=== PATIENT | female | born 1995 | race Caucasian/White ===

== ENCOUNTER → 2018-08-01 10:26 | Outpatient (CLI) | payer MEDICAID, SELFPAY ==
[2018-08-01 11:52] LABS: Absolute Lymphocyte Count 1.67 X10^3/ul (0.83-4.51); Absolute Neutrophil Count 4.4 X10^3/uL (2.0-7.7); Basophil# 0.04 X10^3/uL; Basophil% 0.6 % (0-1); Eosinophil# 0.12 X10^3/uL; Eosinophils% 1.8 % (0-5); Hematocrit 40.4 % (37-47); Hemoglobin 12.8 g/dl (12.0-15.0); Lymphocyte # 1.67 X10^3/ul (4.0); Lymphocyte % 24.7 % (19-41); Mean Corp Hgb Conc 31.7 g/gl (32-36); Mean Corpuscular Hgb 26.5 pg (27.0-32.0); Mean Corpuscular Volume 83.6 fL (81-99); Mean Platelet Vol. 10.8 fl (6.2-12.0); Monocyte% 7.4 % (0-10); Neutrophil # 4.41 X10^3/uL (2.7-7.7); Neutrophil % 65.4 % (47-70); Platelet Count 244 K/mm3 (150-450); RBC Distribution Width CV 14.7 % (11.6-14.6); RBC Distribution Width SD 43.8 fl (35.1-43.9); Red Blood Count 4.83 M/mm3 (4.2-5.4); White Blood Count 6.8 K/mm3 (4.4-11.0)
[2018-08-01 11:59] LABS: POSITIVE COUNT NO; POSITIVE DIFFERENTIAL NO; POSITIVE MORPHOLOGY NO
[2018-08-01 12:11] LABS: Anion Gap 8 (5-15); BUN 8 mg/dL (7-18); BUN/Creat Ratio 9.4 RATIO (10-20); Calcium,Total 8.9 mg/dL (8.5-10.1); Chloride 107 mmol/L (98-107); Creatinine, Serum 0.86 mg/dL (0.55-1.02); EST Glomerular Filtration Rate 86 mL/min (>60); Est Glom Filt Rate - Afr Amer 104 mL/min (>60); Glucose 79 mg/dL (74-106); Potassium 3.7 mmol/L (3.5-5.1); Sodium Level 141 mmol/L (136-145); Thyroid Stim Hormone (TSH) 0.05 uIU/mL (0.358-3.74)
== END ==
DX: Z79.899 Other long term (current) drug therapy (principal)
CPT/HCPCS: 36415; 80048; 80178; 84443; 85025

== ENCOUNTER 2018-08-01 16:43 | Emergency (ER) | payer MEDICAID, SELFPAY ==
[2018-08-01 16:45] VITALS: BP 157/98; PULSE 117; RESP 16; TEMP 35.9; O2SAT 100; BMI 37.8
--- NOTE | 2018-08-01 16:50 | ED.RN ---
pt back to room . rn in room, clothes changed. sitter in bedside
--- NOTE | 2018-08-01 17:03 | EKG12_ITS ---
Test Reason : [facility] Blood Pressure : / mmHG Vent. Rate : 095 BPM Atrial Rate : 095 BPM P-R Int : 194 ms QRS Dur : 078 ms QT Int : 364 ms P-R-T Axes : 039 005 009 degrees QTc Int : 457 ms Normal sinus rhythm Cannot rule out Inferior infarct , age undetermined Abnormal ECG Confirmed by JAILENE DOMINGO, DAVID ([id number]), assistant editor SERAFIN DOYLE ([id number]) on 08/03/2018 3:41:05 PM Referred By: XIN ALEJO Confirmed By:DAVID DENT MD
--- NOTE | 2018-08-01 17:18 | ED.DCSUM_ITS ---
- ER Visit Summary Date of Service: 08/01/18 Chief Complaint: Suicidal ideation History of Present Illness: The patient is a 23 F presenting for evaluation secondary to suicidal ideation. She reports that she used to live and in the [facility], and recently just finished a long psychiatric admissions ranging from March to May of this year. She reports that she recently moved to the area, and is living with a couple that do not understand mental illness. Patient states that this is been causing her increased stress and increased suicidal thoughts. Patient states that recently this is gotten worse and she has feelings that she is either going to overdose or cut herself deep in an attempt to kill herself. She denies being homicidal or hallucinating. Physical Examination: Vital signs are within normal limits, patient is afebrile. General: Patient is well-nourished well-developed and in no acute distress. Head: Normocephalic, atraumatic Eyes: Pupils equal round and reactive bilaterally, extra occular motion intact bialterally ENT: Moist mucous membranes Neck: Supple, no lymphadenopathy, no JVD, no meningismus CVS: Heart regular rhythm with minimal tachycardia, no murmurs, rubs or gallops, radial pulses 2+ bilaterally Resp: Respirations nondistressed, lung sounds clear bilaterally Abdomen: Soft, nontender, nondistended, no palpable masses, normal bowel sounds Back: Nontender Extremities: Nontender, atraumatic, active full range of motion, no peripheral edema Skin: warm, no rashes, no petechia Neuro: Alert and oriented x 4, CN 2-12 intact, no lateralizing neurological defecits Psyc: Flat affect with endorsement of suicidal ideas with plan. Denies being homicidal or hallucinating. Test Results: EKG shows sinus rate of [address] segments normal T waves no evidence of acute ischemia or arrhythmia. CBC chemistry urinalysis hCG and TSH toxicology and ethanol screens all found to be unremarkable Emergency Department Course and Treatment: Patient presented for evaluation secondary to suicidal ideation. Screening medical exam and laboratory studies were remarkable. Patient has an extremely blunted affect, has a history of prior suicidality, and I do believe that she probably would benefit from inpatient stabilization. Psychiatric worker also agrees. Patient will be placed at our earliest availability for psychiatric stabilization. Disposition: Transfer Impression: 1. Suicidal ideation This note was generated with [employer] software. It may contain incorrect words, spelling, and punctuation that were not noted in review of the chart prior to signing ED Disposition - Plan for ED Patient: Chief Complaint: Suicidal Referrals: Care Physician,No Primary [Primary Care Provider] -
[2018-08-01 17:24] LABS: Bacteria 0 SEEN /hpf (None Seen); Mucous, Urine 0 SEEN /hpf (<or=2+); Red Blood Cells-Urine 0 SEEN /hpf (0-5); White Blood Cells 0 SEEN /hpf (0-5)
[2018-08-01 17:27] LABS: Color, Urine Yellow (Yellow); Glucose, Dipstick Normal (Normal); Ketone-Dipstick Negative (Negative); Leukocyte Esterase-Dipstick Negative /ul (Negative); Nitrite-Dipstick Negative (Negative); Occult Blood-Urine 10 /ul (Negative); Protein-Dipstick Negative (Negative); Specific Gravity, Urine 1.005 (1.002-1.030); Urine Bilirubin Dipstick Negative (Negative); Urine Clarity Clear (Clear); Urine Urobilinogen Normal (Normal)
[2018-08-01 17:33] LABS: Squamous Epithelial Cells - UA 0-5 SEEN /hpf (5-10)
[2018-08-01 17:43] LABS: AST(SGOT) 16 U/L (15-37); Alanine Aminotransfer ALT/SGPT 33 U/L (13-56); Albumin, Serum 4.1 g/dL (3.2-5.0); Alkaline Phosphatase 75 U/L (45-117); Anion Gap 8 (5-15); BUN 7 mg/dL (7-18); Calcium,Total 8.9 mg/dL (8.5-10.1); Chloride 106 mmol/L (98-107); Creatinine, Serum 0.87 mg/dL (0.55-1.02); EST Glomerular Filtration Rate 84 mL/min (>60); Est Glom Filt Rate - Afr Amer 101 mL/min (>60); Estimated Creatinine Clearance 106.89 ml/min; Globulin 4.2 g/dL (2.2-4.2); Glucose 88 mg/dL (74-106); Potassium 3.5 mmol/L (3.5-5.1); Protein, Total 8.3 g/dL (6.4-8.2); Sodium Level 140 mmol/L (136-145); Thyroid Stim Hormone (TSH) 0.06 uIU/mL (0.358-3.74)
[2018-08-01 18:00] LABS: Amphetamine Urine VISTA NEGATIVE (<1000 ng/mL); Barbiturate Urine VISTA NEGATIVE (< 200 ng/mL); Benzodiazepine Urine VISTA NEGATIVE (< 200 ng/mL); Cocaine Urine VISTA NEGATIVE (< 300 ng/mL); Ecstacy Urine VISTA NEGATIVE (< 500 ng/mL); Methadone Urine VISTA NEGATIVE (< 300 ng/mL); PCP Urine VISTA NEGATIVE (< 25 ng/mL); THC Urine VISTA NEGATIVE (< 50 ng/mL); Vista UDS pH Range 7
[2018-08-01 18:21] LABS: Red Blood Count 5.19 M/mm3 (4.2-5.4); White Blood Count 8.6 K/mm3 (4.4-11.0)
[2018-08-01 18:22] LABS: Hematocrit 43.5 % (37-47); Hemoglobin 13.8 g/dl (12.0-15.0); Lymphocyte % 13.5 % (19-41); Mean Corp Hgb Conc 31.7 g/gl (32-36); Mean Corpuscular Hgb 26.6 pg (27.0-32.0); Mean Corpuscular Volume 83.8 fL (81-99); Mean Platelet Vol. 11.7 fl (6.2-12.0); Monocyte% 5.4 % (0-10); Neutrophil % 78.3 % (47-70); POSITIVE COUNT NO; POSITIVE DIFFERENTIAL NO; POSITIVE MORPHOLOGY NO; Platelet Count 96 K/mm3 (150-450); Pregnancy, Serum, hCG Quali. NEGATIVE Negative (0-9 Nonpreg); RBC Distribution Width CV 14.5 % (11.6-14.6); RBC Distribution Width SD 43.8 fl (35.1-43.9)
[2018-08-01 18:23] LABS: Basophil# 0.03 X10^3/uL; Basophil% 0.3 % (0-1); Eosinophils% 2.3 % (0-5); Lymphocyte # 1.17 X10^3/ul (4.0); Monocyte# 0.47 X10^3/uL; Neutrophil # 6.75 X10^3/uL (2.7-7.7)
--- NOTE | 2018-08-01 18:41 | ED.RN ---
pt ripped off id band and attempted to cut self. pt took own fingernails and cut self on rt arm. pt blanket removed. this rn talked with pt. contracted for pt safety for 1 hour. pt aware if she is able to control behavior for 1 hour she will be permitted to have a blanket back
[2018-08-01] MEDS: traZODone 100 MG Tablet 200 MG PO (19:39)
[2018-08-01] MEDS: ARIPiprazole 10 MG Tablet PO (19:41)
[2018-08-01] MEDS: Lithium Carbonate 150 MG Capsule 450 MG PO (19:42)
[2018-08-01 19:47] VITALS: RESP 18
[2018-08-01 20:00] VITALS: RESP 18
--- NOTE | 2018-08-01 21:02 | ED.RN ---
PT REMAINS COOPERATIVE, NO FURTHER EPISODES OF SELF HARM. WARM BLANKET GIVEN. PT RELUCTANT TO TAKE EVENING HOME MEDS, STATES I DON'T THINK THEY HELP ME. PT DID TAKE MEDS THEN AFTER RN ADVISED THAT HER ANXIETY WOULD LIKELY ONLY INCREASE IF SHE DID NOT TAKE HER ROUTINE MENTAL HEALTH MEDICATIONS.
[2018-08-01 21:25] VITALS: BP 147/107; PULSE 109; RESP 16; O2SAT 98
[2018-08-01] MEDS: LORazepam 1 MG Tablet PO (21:34)
== END 2018-08-01 22:00 ==
PROVIDERS: Emergency Provider Emergency Medicine
DX: R45.851 Suicidal ideations (principal); F32.9 Major depressive disorder, single episode, unspecified; Z79.899 Other long term (current) drug therapy
CPT/HCPCS: 36415; 80048; 80053; 80178; 80307; 80320; 81001; 84443; 84703; 85025; 93005; 99282; G0480

== ENCOUNTER 2019-02-26 18:36 | Observation (INO) | payer MEDICAID, SELFPAY ==
[2019-02-26 18:37] VITALS: BP 124/81; PULSE 90; PULSE 95; RESP 17; TEMP 37.1; O2SAT 100; BMI 37.9
--- NOTE | 2019-02-26 19:05 | EKG12_ITS ---
Test Reason : REPEAT EKG Blood Pressure : / mmHG Vent. Rate : 086 BPM Atrial Rate : 086 BPM P-R Int : 188 ms QRS Dur : 074 ms QT Int : 382 ms P-R-T Axes : 045 010 039 degrees QTc Int : 457 ms Normal sinus rhythm Normal ECG Confirmed by CAMRYN OLVERA ([id number]), photographic editor BETHANY RUBIO ([id number]) on 02/28/2019 11:52:36 AM Referred By: ANDREA Confirmed By:DARYL OLVERA
--- NOTE | 2019-02-26 19:30 | CM.ED ---
SOCIAL WORK DISCUSSED CASE WITH PHYSICIAN. CRISIS TO EVALUATE ONCE MEDICALLY CLEARED. MARIUSZ SORIA, PAINTING DEPARTMENT SUPERVISOR, LAPPING MACHINE OPERATOR.
[2019-02-26 19:55] LABS: Absolute Lymphocyte Count 2.31 X10^3/ul (0.83-4.51); Absolute Neutrophil Count 7.2 X10^3/uL (2.0-7.7); Basophil# 0.07 X10^3/uL; Basophil% 0.7 % (0-1); Eosinophil# 0.13 X10^3/uL; Eosinophils% 1.3 % (0-5); Hematocrit 43.4 % (37-47); Lymphocyte # 2.31 X10^3/ul (4.0); Lymphocyte % 22.3 % (19-41); Mean Corp Hgb Conc 32.3 g/gl (32-36); Mean Corpuscular Volume 86.8 fL (81-99); Monocyte# 0.64 X10^3/uL; Monocyte% 6.2 % (0-10); Neutrophil # 7.18 X10^3/uL (2.7-7.7); Neutrophil % 69.4 % (47-70); Platelet Count 287 K/mm3 (150-450); RBC Distribution Width CV 14.8 % (11.6-14.6); RBC Distribution Width SD 46.6 fl (35.1-43.9); White Blood Count 10.3 K/mm3 (4.4-11.0)
[2019-02-26 19:57] LABS: POSITIVE COUNT NO; POSITIVE DIFFERENTIAL NO; POSITIVE MORPHOLOGY NO
[2019-02-26 20:04] LABS: Partial Thromboplast Time 29.8 Seconds (24.1-36.2); Prothrombin Time (Protime)PT. 13.2 SECONDS (11.7-14.9)
[2019-02-26] MEDS: 0.9% Normal Saline 1,000 ML 150 ML IV (20:04)
[2019-02-26 20:06] LABS: AST(SGOT) 23 U/L (15-37); Alanine Aminotransfer ALT/SGPT 44 U/L (13-56); Albumin, Serum 4.3 g/dL (3.2-5.0); Alkaline Phosphatase 69 U/L (45-117); Anion Gap 4 (5-15); BUN 13 mg/dL (7-18); BUN/Creat Ratio 14.1 RATIO (10-20); Bilirubin, Direct 0.07 mg/dL (0.00-0.30); Calcium,Total 9.4 mg/dL (8.5-10.1); Chloride 109 mmol/L (98-107); Creatinine, Serum 0.92 mg/dL (0.55-1.02); EST Glomerular Filtration Rate 79 mL/min (>60); Est Glom Filt Rate - Afr Amer 95 mL/min (>60); Estimated Creatinine Clearance 101.09 ml/min; Globulin 4.6 g/dL (2.2-4.2); Glucose 78 mg/dL (74-106); Lipase 369 U/L (73-393); Potassium 3.6 mmol/L (3.5-5.1); Protein, Total 8.9 g/dL (6.4-8.2); Sodium Level 140 mmol/L (136-145)
[2019-02-26 20:09] LABS: Internal QC Validated? YES +Cl - CLEAR BKGD; Pregnancy, Serum, hCG Quali. NEGATIVE Negative
[2019-02-26] MEDS: 0.9% Normal Saline 1,000 ML 1000 ML IV (20:09)
[2019-02-26 20:10] VITALS: BP 138/91; PULSE 93; RESP 14; O2SAT 100
[2019-02-26 20:20] LABS: Bacteria 0 SEEN /hpf (None Seen); Mucous, Urine 0 SEEN /hpf (<or=2+); White Blood Cells 0 SEEN /hpf (0-5)
[2019-02-26 20:24] LABS: Color, Urine Yellow (Yellow); Glucose, Dipstick Normal (Normal); Ketone-Dipstick Negative (Negative); Leukocyte Esterase-Dipstick Negative /ul (Negative); Nitrite-Dipstick Negative (Negative); Occult Blood-Urine 10 /ul (Negative); Protein-Dipstick Negative (Negative); Urine Bilirubin Dipstick Negative (Negative); Urine Clarity Clear (Clear); Urine Urobilinogen Normal (Normal)
[2019-02-26 20:34] LABS: Amphetamine Urine VISTA NEGATIVE (<1000 ng/mL); Barbiturate Urine VISTA NEGATIVE (< 200 ng/mL); Benzodiazepine Urine VISTA NEGATIVE (< 200 ng/mL); Cocaine Urine VISTA NEGATIVE (< 300 ng/mL); Ecstacy Urine VISTA NEGATIVE (< 500 ng/mL); Methadone Urine VISTA NEGATIVE (< 300 ng/mL); PCP Urine VISTA NEGATIVE (< 25 ng/mL); THC Urine VISTA NEGATIVE (< 50 ng/mL); Vista UDS pH Range 7
[2019-02-26 20:37] LABS: Red Blood Cells-Urine 0-5 SEEN /hpf (0-5); Squamous Epithelial Cells - UA 0-5 SEEN /hpf (5-10)
[2019-02-26 21:09] LABS: Acetaminophen (Tylenol) Level < 2.0 ug/mL (10.0-30.0); Salicylate < 1.7 mg/dL (2.8-20.0)
[2019-02-26 21:10] VITALS: BP 120/103; PULSE 88; RESP 16; O2SAT 99
[2019-02-26 22:10] VITALS: BP 111/72; PULSE 82; RESP 14; O2SAT 100
--- NOTE | 2019-02-26 22:52 | ED.RN ---
critical lab value taken from lab. lithium 1.[address] Al [id number]. henrique rosa rn
[2019-02-26 23:00] VITALS: BP 140/98; PULSE 102; RESP 15; O2SAT 100
--- NOTE | 2019-02-26 23:04 | EKG12_ITS ---
Test Reason : [facility] Blood Pressure : / mmHG Vent. Rate : 086 BPM Atrial Rate : 086 BPM P-R Int : 184 ms QRS Dur : 078 ms QT Int : 378 ms P-R-T Axes : 040 009 038 degrees QTc Int : 452 ms Normal sinus rhythm Normal ECG Confirmed by CAMRYN OLVERA ([id number]), pictures editor BETHANY RUBIO ([id number]) on 02/28/2019 11:53:01 AM Referred By: ANDREA Confirmed By:DARYL OLVERA
--- NOTE | 2019-02-26 23:32 | ED.VISSUMM ---
- ER Visit Summary Date of Service: 02/26/19 Chief Complaint: Intentional drug overdose History of Present Illness: The patient is a 23 F who tells me that about 3 hours prior to evaluation she ingested 9000 mg of lithium in an effort to kill herself. She states that she has a history of bipolar depression and anxiety. She sees a psychiatrist and actually saw the psychiatrist on Monday. She states that after seeing her psychiatrist she decided she did not need to take her medications to stop taking it. This unfortunately led to a depression over the past several days. Culminating in today's events. Patient admits to self-harm by cutting her thighs today. Physical Examination: Afebrile vital signs stable Gen: Well-nourished well-developed Head: Normocephalic atraumatic Eyes: Perrl EOMI ENT: TMs clear no rhinorrhea moist mucous membranes Neck: Supple no lymphadenopathy no JVD nontender CVS: Regular rate rhythm no murmurs normal S1-S2 Respiratory: No distress clear to auscultation bilaterally chest nontender Abdomen: Soft nontender nondistended normal bowel sounds no masses Back: Nontender Extremity: There are superficial cuts to the thighs. Skin: Normal color no rash Neuro: alert orientated ?3 CN II-XII intact normal strength sensation there is no resting tremor. There is no intention tremor. When I asked the patient to hold her arms out to test for tremor she then states that she feels shaky. Psych: Depression admits to suicidal ideation Test Results: Initial lithium level 0.6. Subsequent lithium level at 1.4. Toxicology screen otherwise is negative. Otherwise basic labs are negative. EKG shows a sinus rhythm QT interval 452. This was repeated later in the ED course with no essential change in the QT. Case was discussed with poison control. She has been receiving IV fluids. She has not developed any seizures, shaking, or vomiting. Our plan is admission for continued observation on an inpatient basis. Suicidal protocol has been instituted since the patient's arrival. Impression: 1. [place] overdose 2. Suicidal attempt This note was generated with [employer] dictation software. It may contain incorrect words, spelling, and punctuation that were not noted in review of the chart prior to signing ED Disposition - Plan for ED Patient: Referrals: Care Physician,No Primary [Primary Care Provider] -
--- NOTE | 2019-02-26 23:43 | PCM.HP.STD ---
Problem List (1) [place] overdose Status: Acute (2) Suicide attempt Status: Acute History of Present Illness Date of Admission: 02/26/19 Chief Complaint: suicidal attempt The patient is a 23 year old F with a significant history of bipolar disorder who presented to the emergency department with suicidal attempts. Patient to 20 tablets of 450 mg of lithium in an attempt to harm herself. Reportedly 4 days ago she saw , Jimmy Melo CNP for psychiatry visit; and she was deemed to be doing well. After the visit she stopped taking her medication. She reports having a rough weekend and attempted suicide by taking lithium as above. Also she cut herself after bilateral thighs. At the emergency department patient was found to have severely elevated lithium level. Poison control was contacted. The emergency department doctor present control recommended every 2 hours lithium check. And if her lithium level is 2 and she has seizures, poison control recommend dialysis. If her lithium level is 4 and she is asymptomatic poison control recommend dialysis. Her EKG was unremarkable except mild QTC prolongation of 457. At emergency department patient was given normal saline IV fluids. Patient reported headache; nausea and vomiting. Also she reports tremors. Also, On 08/01/2018 patient presented with suicidal ideation. Past Medical History Medical History: Medical History (Last Reviewed 02/27/19 @ 01:36 by Shakir Blackburn MD) Bipolar 1 disorder F31.9 Allergies No Known Allergies Allergy (Verified 08/01/18 16:49) Home Medications: Ambulatory Orders Medication Instructions Recorded Aripiprazole [Abilify] 15 mg PO DAILY 08/01/18 [place] Carbonate [[place] 450 mg PO DAILY 08/01/18 Carbonate ER] Venlafaxine XR [Effexor Xr] 150 mg PO DAILY 08/01/18 Surgical History: no surgical history Lives: Friends Smoking Status: Never smoker Alcohol: None Drugs: None - *Family History Maternal Family History: Family History (Last Updated 02/27/19 @ 00:29 by Shakir Blackburn MD) Brother ADHD Suicidal ideation Mother Anxiety History Items: - Review of Systems Constitutional: Denies: Chills, Fever, Weight Change HEENT: Denies: Head Aches, Sinus Congestion, Sinus Drainage Cardiovascular: Denies: Chest Pain, Palpitations Respiratory: Denies: Cough, Shortness of breath at rest, Sputum production Gastrointestinal: Denies: Abdominal Pain, Nausea, Vomiting Genitourinary: Denies: Dysuria Musculoskeletal: Denies: Joint Pain, Joint Tenderness Skin: Reports: - - bilateral cuts on thighs.. Denies: Wounds Neurological: Denies: Numbness, Tingling, Focal weakness Psychiatric: Reports: Depression, Suicidal Ideations. Denies: Anxiety, Homicidal Ideations Hematologic/ Lymphatic: Denies: Easy Bruising, Easy Bleeding VTE Information - Inpt Only VTE Present on Admission: No VTE Mechan Device Prophylaxis: None VTE Pharm Prophylaxis ordered?: No Reason prophylaxis not ordered:: Treatment Not Indicated - Low risk, ambulate Patient Problems: Active and Suspected Problems (Last Updated 02/27/19 @ 00:27 by Shakir Blackburn MD) [place] overdose (Acute) Suicide attempt (Acute) - Physical Exam General: Alert, Oriented x3, Cooperative HEENT: Atraumatic, PERRLA, EOMI, Normocephalic Neck: Supple, No JVD, Negative Carotid Bruits Lungs: Clear to auscultation, Normal air movement Cardiovascular: Regular rate, No murmurs Abdomen: Bowel Sounds Present, Soft, Non Tender Extremities: No edema, Capillary Refill Less than 3 Seconds Skin: - - Bilateral cuts on thigh. Musculoskeletal: No Tenderness to Palpation of Joints or Extremities Neurological: Cranial nerves II-XII grossly intact Psych/Mental Status: Normal Affect, Appropriate Vital Signs Temp Pulse Resp BP Pulse Ox 98.8 F 93 14 138/91 H 100 02/26/19 18:37 02/26/19 20:10 02/26/19 22:10 02/26/19 20:10 02/26/19 20:10 Oxygen Delivery Method Room Air Weight: 120 kg Body Mass Index (BMI) 37.9 Laboratory Tests Past 24 Hrs 02/26/19 02/26/19 02/26/19 18:55 18:55 19:29 WBC 10.3 RBC 5.00 Hgb 14.0 Hct 43.4 MCV 86.8 MCH 28.0 MCHC 32.3 RDW 14.8 H RDW Differential 46.6 H Plt Count 287 MPV 10.0 Immature Gran % (Auto) 0.100 Neut % (Auto) 69.4 Lymph % (Auto) 22.3 [place] % (Auto) 6.2 Eos % (Auto) 1.3 Baso % (Auto) 0.7 Absolute Neuts (auto) 7.2 Absolute Lymphs (auto) 2.31 Total Counted Not Reportable PT INR APTT Sodium Potassium Chloride Carbon Dioxide Anion Gap BUN Creatinine Estim Creat Clear Calc Est GFR (MDRD) Af Amer Est GFR (MDRD) Non-Af BUN/Creatinine Ratio Glucose Calcium Total Bilirubin Direct Bilirubin AST ALT Alkaline Phosphatase Total Protein Albumin Globulin Lipase Serum , Qual Urine Color Yellow Urine Clarity Clear Urine pH 8.0 Ur Specific [place] 1.010 Urine Protein Negative Urine Glucose (UA) Normal Urine Ketones Negative Urine Occult Blood 10 H Urine Nitrite Negative Urine Bilirubin Negative Urine Urobilinogen Normal Ur Leukocyte Esterase Negative Urine RBC 0-5 SEEN Urine WBC 0 SEEN Ur Squamous Epith Cells 0-5 SEEN Urine Bacteria 0 SEEN Urine Mucus 0 SEEN Salicylates Urine Opiates Screen NEGATIVE Urine Methadone Screen NEGATIVE Acetaminophen Ur Barbiturates Screen NEGATIVE Ur Phencyclidine Scrn NEGATIVE Ur Amphetamines Screen NEGATIVE U Methamphetamin-MDMA NEGATIVE U Benzodiazepines Scrn NEGATIVE [place] Urine Cocaine Screen NEGATIVE U Cannabinoids Screen NEGATIVE Ur Drug Screen Comment Ethyl Alcohol 02/26/19 02/26/19 02/26/19 19:29 19:29 19:29 WBC RBC Hgb Hct MCV MCH MCHC RDW RDW Differential Plt Count MPV Immature Gran % (Auto) Neut % (Auto) Lymph % (Auto) [place] % (Auto) Eos % (Auto) Baso % (Auto) Absolute Neuts (auto) Absolute Lymphs (auto) Total Counted PT 13.2 INR 1.0 APTT 29.8 Sodium 140 Potassium 3.6 Chloride 109 H Carbon Dioxide 27.0 Anion Gap 4 L BUN 13 Creatinine 0.92 Estim Creat Clear Calc 101.09 Est GFR (MDRD) Af Amer 95 Est GFR (MDRD) Non-Af 79 BUN/Creatinine Ratio 14.1 Glucose 78 Calcium 9.4 Total Bilirubin 0.30 Direct Bilirubin 0.07 AST 23 ALT 44 Alkaline Phosphatase 69 Total Protein 8.9 H Albumin 4.3 Globulin 4.6 H Lipase 369 Serum , Qual Urine Color Urine Clarity Urine pH Ur Specific [place] Urine Protein Urine Glucose (UA) Urine Ketones Urine Occult Blood Urine Nitrite Urine Bilirubin Urine Urobilinogen Ur Leukocyte Esterase Urine RBC Urine WBC Ur Squamous Epith Cells Urine Bacteria Urine Mucus Salicylates Urine Opiates Screen Urine Methadone Screen Acetaminophen Ur Barbiturates Screen Ur Phencyclidine Scrn Ur Amphetamines Screen U Methamphetamin-MDMA U Benzodiazepines Scrn [place] Urine Cocaine Screen U Cannabinoids Screen Ur Drug Screen Comment Ethyl Alcohol 10.0 02/26/19 02/26/19 02/26/19 19:29 19:29 19:29 WBC RBC Hgb Hct MCV MCH MCHC RDW RDW Differential Plt Count MPV Immature Gran % (Auto) Neut % (Auto) Lymph % (Auto) [place] % (Auto) Eos % (Auto) Baso % (Auto) Absolute Neuts (auto) Absolute Lymphs (auto) Total Counted PT INR APTT Sodium Potassium Chloride Carbon Dioxide Anion Gap BUN Creatinine Estim Creat Clear Calc Est GFR (MDRD) Af Amer Est GFR (MDRD) Non-Af BUN/Creatinine Ratio Glucose Calcium Total Bilirubin Direct Bilirubin AST ALT Alkaline Phosphatase Total Protein Albumin Globulin Lipase Serum , Qual NEGATIVE Urine Color Urine Clarity Urine pH Ur Specific [place] Urine Protein Urine Glucose (UA) Urine Ketones Urine Occult Blood Urine Nitrite Urine Bilirubin Urine Urobilinogen Ur Leukocyte Esterase Urine RBC Urine WBC Ur Squamous Epith Cells Urine Bacteria Urine Mucus Salicylates < 1.7 L Urine Opiates Screen Urine Methadone Screen Acetaminophen < 2.0 L Ur Barbiturates Screen Ur Phencyclidine Scrn Ur Amphetamines Screen U Methamphetamin-MDMA U Benzodiazepines Scrn [place] 0.60 Urine Cocaine Screen U Cannabinoids Screen Ur Drug Screen Comment Ethyl Alcohol 02/26/19 22:01 WBC RBC Hgb Hct MCV MCH MCHC RDW RDW Differential Plt Count MPV Immature Gran % (Auto) Neut % (Auto) Lymph % (Auto) [place] % (Auto) Eos % (Auto) Baso % (Auto) Absolute Neuts (auto) Absolute Lymphs (auto) Total Counted PT INR APTT Sodium Potassium Chloride Carbon Dioxide Anion Gap BUN Creatinine Estim Creat Clear Calc Est GFR (MDRD) Af Amer Est GFR (MDRD) Non-Af BUN/Creatinine Ratio Glucose Calcium Total Bilirubin Direct Bilirubin AST ALT Alkaline Phosphatase Total Protein Albumin Globulin Lipase Serum , Qual Urine Color Urine Clarity Urine pH Ur Specific [place] Urine Protein Urine Glucose (UA) Urine Ketones Urine Occult Blood Urine Nitrite Urine Bilirubin Urine Urobilinogen Ur Leukocyte Esterase Urine RBC Urine WBC Ur Squamous Epith Cells Urine Bacteria Urine Mucus Salicylates Urine Opiates Screen Urine Methadone Screen Acetaminophen Ur Barbiturates Screen Ur Phencyclidine Scrn Ur Amphetamines Screen U Methamphetamin-MDMA U Benzodiazepines Scrn [place] 1.40 H* Urine Cocaine Screen U Cannabinoids Screen Ur Drug Screen Comment Ethyl Alcohol Assessment/Plan All Active Problems (Last Updated 02/27/19 @ 00:27 by Shakir Blackburn MD) [place] overdose (Acute) Suicide attempt (Acute) The patient is a 23 year old F with a significant history of bipolar disorder who presented to the emergency department with suicidal attempts from lithium overdose and self-harm to her bilateral thighs. [place] overdose Will admit to progressive care unit on telemetry. Continue every 2 hours lithium checks. Supportive treatment with normal saline hydration Trend blood pressures Per recommendation from poison control if lithium level is 2 and patient have seizures consider dialysis. For asymptomatic lithium level of 4 consider dialysis. Tylenol for headache Phenergan PO/IM fror nausea and vomiting Suicidal attempt. Sitter by bedside Counseled. Case management consult was done from the ED; continue. If patient is siria and lithium level unremarkable consider crisis center evaluation. Suicidal precuations Bipolar disorder Abilify and Effexor continued [place] on hold at this time. Self Injury to bilateral thighs Bactroban ordered. DVT prophylaxis Low risk Ambulation. Code Visit OBSV E&M: 00192 Initial observation care L3
[2019-02-27] VITALS (10 sets, daily range): BP systolic 110–132; BP diastolic 54–88; PULSE 54–79; RESP 15–16; TEMP 36.8–36.9; O2SAT 97–100; BMI 38.8; BMI 38.9
[2019-02-27] MEDS: 0.9% Normal Saline 1,000 ML 150 ML IV (00:41)
[2019-02-27] MEDS: Acetaminophen 325 MG Tablet 650 MG PO ×2 (01:17→14:39)
[2019-02-27] MEDS: proMETHazine 25 MG Tablet 12.5 MG PO ×2 (01:17→09:27)
--- NOTE | 2019-02-27 07:52 | PCM.PN.HOSP ---
Patient Problems: Active and Suspected Problems (Last Reviewed 02/27/19 @ 01:36 by Shakir Blackburn MD) [place] overdose (Acute) Suicide attempt (Acute) Subjective: Continues to have suicidal ideation and does admit that her lithium overdose was an attempted suicide. She denies any pain. Otherwise feels okay Vitals/I&O's: Vital Signs Temp Pulse Resp BP Pulse Ox 98.3 F 56 L 16 113/54 L 98 02/27/19 05:15 02/27/19 05:15 02/27/19 05:15 02/27/19 05:15 02/27/19 05:15 Oxygen Delivery Method Room Air Weight: 271 lb 6.224 oz Body Mass Index (BMI) 38.8 Intake and Output for Last 24 Hours 02/25/19 02/26/19 02/27/19 23:59 23:59 23:59 Intake Total 616 / 616 Balance 616 / 616 General: Alert, Oriented x3, Cooperative, No apparent distress HEENT: Atraumatic, PERRLA, EOMI, Normocephalic Neck: Supple, No JVD Lungs: Clear to auscultation, Normal air movement, No rhonchi, No wheeze, No rales, Diminished Cardiovascular: Regular rate, Regular Rhythm, Normal S1, Normal S2, No murmurs Abdomen: Soft, Non Tender, Non-Distended, No Hepato-splenomegaly, Obese Extremities: No edema, Capillary Refill Less than 3 Seconds Skin: No rashes, No breakdown, - - Bilateral cuts on thighs Neurological: Neuro grossly intact, Sensory exam intact to light touch and pain Psych/Mental Status: Flat Affect, Depressed, Suicidal Laboratory Results 02/26/19 18:55: Urine Color Yellow, Urine Clarity Clear, Urine pH 8.0, Ur Specific [place] 1.010, Urine Protein Negative, Urine Glucose (UA) Normal, Urine Ketones Negative, Urine Occult Blood 10 H, Urine Nitrite Negative, Urine Bilirubin Negative, Urine Urobilinogen Normal, Ur Leukocyte Esterase Negative, Urine RBC 0-5 SEEN, Urine WBC 0 SEEN, Ur Squamous Epith Cells 0-5 SEEN, Urine Bacteria 0 SEEN, Urine Mucus 0 SEEN 02/26/19 18:55: Urine Opiates Screen NEGATIVE, Urine Methadone Screen NEGATIVE, Ur Barbiturates Screen NEGATIVE, Ur Phencyclidine Scrn NEGATIVE, Ur Amphetamines Screen NEGATIVE, U Methamphetamin-MDMA NEGATIVE, U Benzodiazepines Scrn NEGATIVE, Urine Cocaine Screen NEGATIVE, U Cannabinoids Screen NEGATIVE, Ur Drug Screen Comment 02/26/19 19:29: WBC 10.3, RBC 5.00, Hgb 14.0, Hct 43.4, MCV 86.8, MCH 28.0, MCHC 32.3, RDW 14.8 H, RDW Differential 46.6 H, Plt Count 287, MPV 10.0, Immature Gran % (Auto) 0.100, Neut % (Auto) 69.4, Lymph % (Auto) 22.3, [place] % (Auto) 6.2, Eos % (Auto) 1.3, Baso % (Auto) 0.7, Absolute Neuts (auto) 7.2, Absolute Lymphs (auto) 2.31, Total Counted Not Reportable 02/26/19 19:29: PT 13.2, INR 1.0, APTT 29.8 02/26/19 19:29: Sodium 140, Potassium 3.6, Chloride 109 H, Carbon Dioxide 27.0, Anion Gap 4 L, BUN 13, Creatinine 0.92, Estim Creat Clear Calc 101.09, Est GFR (MDRD) Af Amer 95, Est GFR (MDRD) Non-Af 79, BUN/Creatinine Ratio 14.1, Glucose 78, Calcium 9.4, Total Bilirubin 0.30, Direct Bilirubin 0.07, AST 23, ALT 44, Alkaline Phosphatase 69, Total Protein 8.9 H, Albumin 4.3, Globulin 4.6 H, Lipase 369 02/26/19 19:29: Ethyl Alcohol 10.0 02/26/19 19:29: Serum , Qual NEGATIVE 02/26/19 19:29: [place] 0.60 02/26/19 19:29: Salicylates < 1.7 L, Acetaminophen < 2.0 L 02/26/19 22:01: [place] 1.40 H* 02/27/19 00:48: [place] 1.70 H* 02/27/19 03:10: [place] 1.50 H* 02/27/19 04:58: [place] 1.30 H 02/27/19 06:44: [place] 1.20 Current Medications Acetaminophen (Tylenol) 650 mg PO Q6H PRN PRN PRN Reason: Mild pain 1-3/Temp > 100.7 F Last Admin: 02/27/19 01:17 Dose: 650 mg Aripiprazole (Abilify) 15 mg PO DAILY [facility] Dextrose (D50w Syringe) 0 gm IV X1 PRN; Protocol PRN Reason: Hypoglycemia Glucagon () 1 mg IM .X1 PRN PRN Reason: Hypoglycemia Sodium Chloride () 1,000 mls @ 75 mls/hr IV .[id number] RITU Stop: 02/27/19 14:11 Last Admin: 02/27/19 05:18 Dose: Not Given Mupirocin (Bactroban) 1 applic TOPICAL BID [facility]; Protocol Promethazine HCl (Phenergan) 12.5 mg IM Q4H PRN PRN PRN Reason: NAUSEA/VOMITING Promethazine HCl (Phenergan Tablet) 12.5 mg PO Q4H PRN PRN PRN Reason: NAUSEA/VOMITING Last Admin: 02/27/19 01:17 Dose: 12.5 mg Sodium Chloride () 5 - 15 ml IV UD PRN PRN Reason: SALINE FLUSH Venlafaxine HCl (Effexor Xr) 150 mg PO DAILY [facility] Medical Necessity - Tobacco Use Smoking Status: Never smoker Assessment/Plan All Active Problems (Last Reviewed 02/27/19 @ 01:36 by Shakri Blackburn MD) [place] overdose (Acute) Suicide attempt (Acute) 1. Suicide attempt with lithium overdose/bipolar disorder/self-harm -[place] level is now normal at 1.2 -Continue with IV fluids at 75 -Pressures are stable -Consult crisis for inpatient psychiatric stay today if possible -Continue with her Effexor and Abilify at this time, will hold her lithium -Cuts on her thighs seems stable, continue with Bactroban ointment DVT: Ambulation Code Visit OBSV E&M: 84042 Subsequent observation care L2
--- NOTE | 2019-02-27 07:55 | PN_ITS ---
Patient Problems: Active and Suspected Problems (Last Reviewed 02/27/19 @ 01:36 by Shakir Blackburn MD) [place] overdose (Acute) Suicide attempt (Acute) Subjective: Continues to have suicidal ideation and does admit that her lithium overdose was an attempted suicide. She denies any pain. Otherwise feels okay Vitals/I&O's: Vital Signs Temp Pulse Resp BP Pulse Ox 98.3 F 56 L 16 113/54 L 98 02/27/19 05:15 02/27/19 05:15 02/27/19 05:15 02/27/19 05:15 02/27/19 05:15 Oxygen Delivery Method Room Air Weight: 271 lb 6.224 oz Body Mass Index (BMI) 38.8 Intake and Output for Last 24 Hours 02/25/19 02/26/19 02/27/19 23:59 23:59 23:59 Intake Total 616 / 616 Balance 616 / 616 General: Alert, Oriented x3, Cooperative, No apparent distress HEENT: Atraumatic, PERRLA, EOMI, Normocephalic Neck: Supple, No JVD Lungs: Clear to auscultation, Normal air movement, No rhonchi, No wheeze, No rales, Diminished Cardiovascular: Regular rate, Regular Rhythm, Normal S1, Normal S2, No murmurs Abdomen: Soft, Non Tender, Non-Distended, No Hepato-splenomegaly, Obese Extremities: No edema, Capillary Refill Less than 3 Seconds Skin: No rashes, No breakdown, - - Bilateral cuts on thighs Neurological: Neuro grossly intact, Sensory exam intact to light touch and pain Psych/Mental Status: Flat Affect, Depressed, Suicidal Laboratory Results 02/26/19 18:55: Urine Color Yellow, Urine Clarity Clear, Urine pH 8.0, Ur Specific [place] 1.010, Urine Protein Negative, Urine Glucose (UA) Normal, Urine Ketones Negative, Urine Occult Blood 10 H, Urine Nitrite Negative, Urine Bilirubin Negative, Urine Urobilinogen Normal, Ur Leukocyte Esterase Negative, Urine RBC 0-5 SEEN, Urine WBC 0 SEEN, Ur Squamous Epith Cells 0-5 SEEN, Urine Bacteria 0 SEEN, Urine Mucus 0 SEEN 02/26/19 18:55: Urine Opiates Screen NEGATIVE, Urine Methadone Screen NEGATIVE, Ur Barbiturates Screen NEGATIVE, Ur Phencyclidine Scrn NEGATIVE, Ur Amphetamines Screen NEGATIVE, U Methamphetamin-MDMA NEGATIVE, U Benzodiazepines Scrn NEGATIVE, Urine Cocaine Screen NEGATIVE, U Cannabinoids Screen NEGATIVE, Ur Drug Screen Comment 02/26/19 19:29: WBC 10.3, RBC 5.00, Hgb 14.0, Hct 43.4, MCV 86.8, MCH 28.0, MCHC 32.3, RDW 14.8 H, RDW Differential 46.6 H, Plt Count 287, MPV 10.0, Immature Gran % (Auto) 0.100, Neut % (Auto) 69.4, Lymph % (Auto) 22.3, [place] % (Auto) 6.2, Eos % (Auto) 1.3, Baso % (Auto) 0.7, Absolute Neuts (auto) 7.2, Absolute Lymphs (auto) 2.31, Total Counted Not Reportable 02/26/19 19:29: PT 13.2, INR 1.0, APTT 29.8 02/26/19 19:29: Sodium 140, Potassium 3.6, Chloride 109 H, Carbon Dioxide 27.0, Anion Gap 4 L, BUN 13, Creatinine 0.92, Estim Creat Clear Calc 101.09, Est GFR (MDRD) Af Amer 95, Est GFR (MDRD) Non-Af 79, BUN/Creatinine Ratio 14.1, Glucose 78, Calcium 9.4, Total Bilirubin 0.30, Direct Bilirubin 0.07, AST 23, ALT 44, Alkaline Phosphatase 69, Total Protein 8.9 H, Albumin 4.3, Globulin 4.6 H, Lipase 369 02/26/19 19:29: Ethyl Alcohol 10.0 02/26/19 19:29: Serum , Qual NEGATIVE 02/26/19 19:29: [place] 0.60 02/26/19 19:29: Salicylates < 1.7 L, Acetaminophen < 2.0 L 02/26/19 22:01: [place] 1.40 H* 02/27/19 00:48: [place] 1.70 H* 02/27/19 03:10: [place] 1.50 H* 02/27/19 04:58: [place] 1.30 H 02/27/19 06:44: [place] 1.20 Current Medications Acetaminophen (Tylenol) 650 mg PO Q6H PRN PRN PRN Reason: Mild pain 1-3/Temp > 100.7 F Last Admin: 02/27/19 01:17 Dose: 650 mg Aripiprazole (Abilify) 15 mg PO DAILY [facility] Dextrose (D50w Syringe) 0 gm IV X1 PRN; Protocol PRN Reason: Hypoglycemia Glucagon () 1 mg IM .X1 PRN PRN Reason: Hypoglycemia Sodium Chloride () 1,000 mls @ 75 mls/hr IV .[id number] RITU Stop: 02/27/19 14:11 Last Admin: 02/27/19 05:18 Dose: Not Given Mupirocin (Bactroban) 1 applic TOPICAL BID [facility]; Protocol Promethazine HCl (Phenergan) 12.5 mg IM Q4H PRN PRN PRN Reason: NAUSEA/VOMITING Promethazine HCl (Phenergan Tablet) 12.5 mg PO Q4H PRN PRN PRN Reason: NAUSEA/VOMITING Last Admin: 02/27/19 01:17 Dose: 12.5 mg Sodium Chloride () 5 - 15 ml IV UD PRN PRN Reason: SALINE FLUSH Venlafaxine HCl (Effexor Xr) 150 mg PO DAILY [facility] Medical Necessity - Tobacco Use Smoking Status: Never smoker Assessment/Plan All Active Problems (Last Reviewed 02/27/19 @ 01:36 by Shakir Blackburn MD) [place] overdose (Acute) Suicide attempt (Acute) 1. Suicide attempt with lithium overdose/bipolar disorder/self-harm -[place] level is now normal at 1.2 -Continue with IV fluids at 75 -Pressures are stable -Consult crisis for inpatient psychiatric stay today if possible -Continue with her Effexor and Abilify at this time, will hold her lithium -Cuts on her thighs seems stable, continue with Bactroban ointment DVT: Ambulation Code Visit OBSV E&M: 47043 Subsequent observation care L2
[2019-02-27] MEDS: Mupirocin Ointment 22gm Tube 1 APPLIC TOPICAL (09:21)
[2019-02-27] MEDS: Venlafaxine XR 150 MG Capsule PO (09:22)
[2019-02-27] MEDS: ARIPiprazole 5 MG Tablet 15 MG PO (11:17)
[2019-02-27] MEDS: 0.9% NaCl Peripheral Flush Adult/Peds IV (14:36)
--- NOTE | 2019-02-27 16:34 | NURSING ---
Report called to Blake LOUIE. at [phone]
--- NOTE | 2019-02-27 20:04 | PCM.DC.SUM ---
Discharge Date and Diagnosis Date of Admission: 02/26/19 Date of Discharge: 02/27/19 Hospital Course and Treatment Imaging Results: None Consultations 02/27/19 08:27 Consult: Mental Health/Crisis Routine Reason for consult?: Intentional overdose Date Notified:: 02/27/19 Time notified:: 08:27 Operations: None Procedures: None Summary of Care Provided: Per HPI: The patient is a 23 year old F with a significant history of bipolar disorder who presented to the emergency department with suicidal attempts. Patient to 20 tablets of 450 mg of lithium in an attempt to harm herself. Reportedly 4 days ago she saw , Jimmy Melo CNP for psychiatry visit; and she was deemed to be doing well. After the visit she stopped taking her medication. She reports having a rough weekend and attempted suicide by taking lithium as above. Also she cut herself after bilateral thighs. At the emergency department patient was found to have severely elevated lithium level. Poison control was contacted. The emergency department doctor present control recommended every 2 hours lithium check. And if her lithium level is 2 and she has seizures, poison control recommend dialysis. If her lithium level is 4 and she is asymptomatic poison control recommend dialysis. Her EKG was unremarkable except mild QTC prolongation of 457. At emergency department patient was given normal saline IV fluids. Patient reported headache; nausea and vomiting. Also she reports tremors. Also, On 08/01/2018 patient presented with suicidal ideation. Hospital Course: 1. Suicide attempt with lithium overdose/bipolar disorder/[id number]-62-year-old female with a history of bipolar disorder who takes Abilify, Effexor, and lithium presented to the hospital after taking 20 tablets of her 450 mg of lithium and attempt to kill herself. She also has signs of self-harm with cuts on both of her thighs that are beating treated with Bactroban. Today her lithium level returned to normal at 1.2 and therefore crisis was consulted for evaluation. She was medically stable for discharge and they were able to find her an inpatient unit to be discharged to today. - Physical Exam Vital Signs Temp Pulse Resp BP Pulse Ox 98.4 F 69 16 110/67 98 02/27/19 16:07 02/27/19 16:07 02/27/19 16:07 02/27/19 16:07 02/27/19 16:07 Oxygen Delivery Method Room Air Weight: 271 lb 6.224 oz Body Mass Index (BMI) 38.8 Intake and Output for Last 24 Hours 02/25/19 02/26/19 02/27/19 23:59 23:59 23:59 Intake Total 1432 / 1432 Balance 1432 / 1432 Laboratory Tests Past 24 Hrs 02/26/19 02/26/19 02/26/19 18:55 18:55 19:29 PT 13.2 INR 1.0 APTT 29.8 Sodium Potassium Chloride Carbon Dioxide Anion Gap BUN Creatinine Estim Creat Clear Calc Est GFR (MDRD) Af Amer Est GFR (MDRD) Non-Af BUN/Creatinine Ratio Glucose Calcium Total Bilirubin Direct Bilirubin AST ALT Alkaline Phosphatase Total Protein Albumin Globulin Lipase Serum , Qual Urine Color Yellow Urine Clarity Clear Urine pH 8.0 Ur Specific [place] 1.010 Urine Protein Negative Urine Glucose (UA) Normal Urine Ketones Negative Urine Occult Blood 10 H Urine Nitrite Negative Urine Bilirubin Negative Urine Urobilinogen Normal Ur Leukocyte Esterase Negative Urine RBC 0-5 SEEN Urine WBC 0 SEEN Ur Squamous Epith Cells 0-5 SEEN Urine Bacteria 0 SEEN Urine Mucus 0 SEEN Salicylates Urine Opiates Screen NEGATIVE Urine Methadone Screen NEGATIVE Acetaminophen Ur Barbiturates Screen NEGATIVE Ur Phencyclidine Scrn NEGATIVE Ur Amphetamines Screen NEGATIVE U Methamphetamin-MDMA NEGATIVE U Benzodiazepines Scrn NEGATIVE [place] Urine Cocaine Screen NEGATIVE U Cannabinoids Screen NEGATIVE Ur Drug Screen Comment Ethyl Alcohol 02/26/19 02/26/19 02/26/19 19:29 19:29 19:29 PT INR APTT Sodium 140 Potassium 3.6 Chloride 109 H Carbon Dioxide 27.0 Anion Gap 4 L BUN 13 Creatinine 0.92 Estim Creat Clear Calc 101.09 Est GFR (MDRD) Af Amer 95 Est GFR (MDRD) Non-Af 79 BUN/Creatinine Ratio 14.1 Glucose 78 Calcium 9.4 Total Bilirubin 0.30 Direct Bilirubin 0.07 AST 23 ALT 44 Alkaline Phosphatase 69 Total Protein 8.9 H Albumin 4.3 Globulin 4.6 H Lipase 369 Serum , Qual NEGATIVE Urine Color Urine Clarity Urine pH Ur Specific [place] Urine Protein Urine Glucose (UA) Urine Ketones Urine Occult Blood Urine Nitrite Urine Bilirubin Urine Urobilinogen Ur Leukocyte Esterase Urine RBC Urine WBC Ur Squamous Epith Cells Urine Bacteria Urine Mucus Salicylates Urine Opiates Screen Urine Methadone Screen Acetaminophen Ur Barbiturates Screen Ur Phencyclidine Scrn Ur Amphetamines Screen U Methamphetamin-MDMA U Benzodiazepines Scrn [place] Urine Cocaine Screen U Cannabinoids Screen Ur Drug Screen Comment Ethyl Alcohol 10.0 02/26/19 02/26/19 02/26/19 19:29 19:29 22:01 PT INR APTT Sodium Potassium Chloride Carbon Dioxide Anion Gap BUN Creatinine Estim Creat Clear Calc Est GFR (MDRD) Af Amer Est GFR (MDRD) Non-Af BUN/Creatinine Ratio Glucose Calcium Total Bilirubin Direct Bilirubin AST ALT Alkaline Phosphatase Total Protein Albumin Globulin Lipase Serum , Qual Urine Color Urine Clarity Urine pH Ur Specific [place] Urine Protein Urine Glucose (UA) Urine Ketones Urine Occult Blood Urine Nitrite Urine Bilirubin Urine Urobilinogen Ur Leukocyte Esterase Urine RBC Urine WBC Ur Squamous Epith Cells Urine Bacteria Urine Mucus Salicylates < 1.7 L Urine Opiates Screen Urine Methadone Screen Acetaminophen < 2.0 L Ur Barbiturates Screen Ur Phencyclidine Scrn Ur Amphetamines Screen U Methamphetamin-MDMA U Benzodiazepines Scrn [place] 0.60 1.40 H* Urine Cocaine Screen U Cannabinoids Screen Ur Drug Screen Comment Ethyl Alcohol 02/27/19 02/27/19 02/27/19 00:48 03:10 04:58 PT INR APTT Sodium Potassium Chloride Carbon Dioxide Anion Gap BUN Creatinine Estim Creat Clear Calc Est GFR (MDRD) Af Amer Est GFR (MDRD) Non-Af BUN/Creatinine Ratio Glucose Calcium Total Bilirubin Direct Bilirubin AST ALT Alkaline Phosphatase Total Protein Albumin Globulin Lipase Serum , Qual Urine Color Urine Clarity Urine pH Ur Specific [place] Urine Protein Urine Glucose (UA) Urine Ketones Urine Occult Blood Urine Nitrite Urine Bilirubin Urine Urobilinogen Ur Leukocyte Esterase Urine RBC Urine WBC Ur Squamous Epith Cells Urine Bacteria Urine Mucus Salicylates Urine Opiates Screen Urine Methadone Screen Acetaminophen Ur Barbiturates Screen Ur Phencyclidine Scrn Ur Amphetamines Screen U Methamphetamin-MDMA U Benzodiazepines Scrn [place] 1.70 H* 1.50 H* 1.30 H Urine Cocaine Screen U Cannabinoids Screen Ur Drug Screen Comment Ethyl Alcohol 02/27/19 06:44 PT INR APTT Sodium Potassium Chloride Carbon Dioxide Anion Gap BUN Creatinine Estim Creat Clear Calc Est GFR (MDRD) Af Amer Est GFR (MDRD) Non-Af BUN/Creatinine Ratio Glucose Calcium Total Bilirubin Direct Bilirubin AST ALT Alkaline Phosphatase Total Protein Albumin Globulin Lipase Serum , Qual Urine Color Urine Clarity Urine pH Ur Specific [place] Urine Protein Urine Glucose (UA) Urine Ketones Urine Occult Blood Urine Nitrite Urine Bilirubin Urine Urobilinogen Ur Leukocyte Esterase Urine RBC Urine WBC Ur Squamous Epith Cells Urine Bacteria Urine Mucus Salicylates Urine Opiates Screen Urine Methadone Screen Acetaminophen Ur Barbiturates Screen Ur Phencyclidine Scrn Ur Amphetamines Screen U Methamphetamin-MDMA U Benzodiazepines Scrn [place] 1.20 Urine Cocaine Screen U Cannabinoids Screen Ur Drug Screen Comment Ethyl Alcohol Home Medications: Medications to take at Discharge Aripiprazole [Abilify] 15 mg PO DAILY 08/01/18 [place] Carbonate [[place] Carbonate ER] 450 mg PO DAILY 08/01/18 Venlafaxine XR [Effexor Xr] 150 mg PO DAILY 08/01/18 Primary Care Physician: Care Physician,No Primary [Primary Care Provider] - Disposition: Psych Hospital or Unit Minutes spent on discharge:: 35 Patient Condition:: Stable Medical Necessity - Tobacco Use Smoking Status: Never smoker Meaningful Use Info Meaningful Use Diagnoses (Choose all that apply): None applicable Code Visit OBSV E&M: 82817 Observation care discharge
--- NOTE | 2019-02-27 20:08 | DS.PCM_ITS ---
Discharge Date and Diagnosis Date of Admission: 02/26/19 Date of Discharge: 02/27/19 Hospital Course and Treatment Imaging Results: None Consultations 02/27/19 08:27 Consult: Mental Health/Crisis Routine Reason for consult?: Intentional overdose Date Notified:: 02/27/19 Time notified:: 08:27 Operations: None Procedures: None Summary of Care Provided: Per HPI: The patient is a 23 year old F with a significant history of bipolar disorder who presented to the emergency department with suicidal attempts. Patient to 20 tablets of 450 mg of lithium in an attempt to harm herself. Reportedly 4 days ago she saw , Jimmy Melo CNP for psychiatry visit; and she was deemed to be doing well. After the visit she stopped taking her medication. She reports having a rough weekend and attempted suicide by taking lithium as above. Also she cut herself after bilateral thighs. At the emergency department patient was found to have severely elevated lithium level. Poison control was contacted. The emergency department doctor present control recommended every 2 hours lithium check. And if her lithium level is 2 and she has seizures, poison control recommend dialysis. If her lithium level is 4 and she is asymptomatic poison control recommend dialysis. Her EKG was unremarkable except mild QTC prolongation of 457. At emergency department patient was given normal saline IV fluids. Patient reported headache; nausea and vomiting. Also she reports tremors. Also, On 08/01/2018 patient presented with suicidal ideation. Hospital Course: 1. Suicide attempt with lithium overdose/bipolar disorder/[id number]-89-year-old female with a history of bipolar disorder who takes Abilify, Effexor, and lithium presented to the hospital after taking 20 tablets of her 450 mg of lithium and attempt to kill herself. She also has signs of self-harm with cuts on both of her thighs that are beating treated with Bactroban. Today her lithium level returned to normal at 1.2 and therefore crisis was consulted for evaluation. She was medically stable for discharge and they were able to find her an inpatient unit to be discharged to today. - Physical Exam Vital Signs Temp Pulse Resp BP Pulse Ox 98.4 F 69 16 110/67 98 02/27/19 16:07 02/27/19 16:07 02/27/19 16:07 02/27/19 16:07 02/27/19 16:07 Oxygen Delivery Method Room Air Weight: 271 lb 6.224 oz Body Mass Index (BMI) 38.8 Intake and Output for Last 24 Hours 02/25/19 02/26/19 02/27/19 23:59 23:59 23:59 Intake Total 1432 / 1432 Balance 1432 / 1432 Laboratory Tests Past 24 Hrs 02/26/19 02/26/19 02/26/19 18:55 18:55 19:29 PT 13.2 INR 1.0 APTT 29.8 Sodium Potassium Chloride Carbon Dioxide Anion Gap BUN Creatinine Estim Creat Clear Calc Est GFR (MDRD) Af Amer Est GFR (MDRD) Non-Af BUN/Creatinine Ratio Glucose Calcium Total Bilirubin Direct Bilirubin AST ALT Alkaline Phosphatase Total Protein Albumin Globulin Lipase Serum , Qual Urine Color Yellow Urine Clarity Clear Urine pH 8.0 Ur Specific [place] 1.010 Urine Protein Negative Urine Glucose (UA) Normal Urine Ketones Negative Urine Occult Blood 10 H Urine Nitrite Negative Urine Bilirubin Negative Urine Urobilinogen Normal Ur Leukocyte Esterase Negative Urine RBC 0-5 SEEN Urine WBC 0 SEEN Ur Squamous Epith Cells 0-5 SEEN Urine Bacteria 0 SEEN Urine Mucus 0 SEEN Salicylates Urine Opiates Screen NEGATIVE Urine Methadone Screen NEGATIVE Acetaminophen Ur Barbiturates Screen NEGATIVE Ur Phencyclidine Scrn NEGATIVE Ur Amphetamines Screen NEGATIVE U Methamphetamin-MDMA NEGATIVE U Benzodiazepines Scrn NEGATIVE [place] Urine Cocaine Screen NEGATIVE U Cannabinoids Screen NEGATIVE Ur Drug Screen Comment Ethyl Alcohol 02/26/19 02/26/19 02/26/19 19:29 19:29 19:29 PT INR APTT Sodium 140 Potassium 3.6 Chloride 109 H Carbon Dioxide 27.0 Anion Gap 4 L BUN 13 Creatinine 0.92 Estim Creat Clear Calc 101.09 Est GFR (MDRD) Af Amer 95 Est GFR (MDRD) Non-Af 79 BUN/Creatinine Ratio 14.1 Glucose 78 Calcium 9.4 Total Bilirubin 0.30 Direct Bilirubin 0.07 AST 23 ALT 44 Alkaline Phosphatase 69 Total Protein 8.9 H Albumin 4.3 Globulin 4.6 H Lipase 369 Serum , Qual NEGATIVE Urine Color Urine Clarity Urine pH Ur Specific [place] Urine Protein Urine Glucose (UA) Urine Ketones Urine Occult Blood Urine Nitrite Urine Bilirubin Urine Urobilinogen Ur Leukocyte Esterase Urine RBC Urine WBC Ur Squamous Epith Cells Urine Bacteria Urine Mucus Salicylates Urine Opiates Screen Urine Methadone Screen Acetaminophen Ur Barbiturates Screen Ur Phencyclidine Scrn Ur Amphetamines Screen U Methamphetamin-MDMA U Benzodiazepines Scrn [place] Urine Cocaine Screen U Cannabinoids Screen Ur Drug Screen Comment Ethyl Alcohol 10.0 02/26/19 02/26/19 02/26/19 19:29 19:29 22:01 PT INR APTT Sodium Potassium Chloride Carbon Dioxide Anion Gap BUN Creatinine Estim Creat Clear Calc Est GFR (MDRD) Af Amer Est GFR (MDRD) Non-Af BUN/Creatinine Ratio Glucose Calcium Total Bilirubin Direct Bilirubin AST ALT Alkaline Phosphatase Total Protein Albumin Globulin Lipase Serum , Qual Urine Color Urine Clarity Urine pH Ur Specific [place] Urine Protein Urine Glucose (UA) Urine Ketones Urine Occult Blood Urine Nitrite Urine Bilirubin Urine Urobilinogen Ur Leukocyte Esterase Urine RBC Urine WBC Ur Squamous Epith Cells Urine Bacteria Urine Mucus Salicylates < 1.7 L Urine Opiates Screen Urine Methadone Screen Acetaminophen < 2.0 L Ur Barbiturates Screen Ur Phencyclidine Scrn Ur Amphetamines Screen U Methamphetamin-MDMA U Benzodiazepines Scrn [place] 0.60 1.40 H* Urine Cocaine Screen U Cannabinoids Screen Ur Drug Screen Comment Ethyl Alcohol 02/27/19 02/27/19 02/27/19 00:48 03:10 04:58 PT INR APTT Sodium Potassium Chloride Carbon Dioxide Anion Gap BUN Creatinine Estim Creat Clear Calc Est GFR (MDRD) Af Amer Est GFR (MDRD) Non-Af BUN/Creatinine Ratio Glucose Calcium Total Bilirubin Direct Bilirubin AST ALT Alkaline Phosphatase Total Protein Albumin Globulin Lipase Serum , Qual Urine Color Urine Clarity Urine pH Ur Specific [place] Urine Protein Urine Glucose (UA) Urine Ketones Urine Occult Blood Urine Nitrite Urine Bilirubin Urine Urobilinogen Ur Leukocyte Esterase Urine RBC Urine WBC Ur Squamous Epith Cells Urine Bacteria Urine Mucus Salicylates Urine Opiates Screen Urine Methadone Screen Acetaminophen Ur Barbiturates Screen Ur Phencyclidine Scrn Ur Amphetamines Screen U Methamphetamin-MDMA U Benzodiazepines Scrn [place] 1.70 H* 1.50 H* 1.30 H Urine Cocaine Screen U Cannabinoids Screen Ur Drug Screen Comment Ethyl Alcohol 02/27/19 06:44 PT INR APTT Sodium Potassium Chloride Carbon Dioxide Anion Gap BUN Creatinine Estim Creat Clear Calc Est GFR (MDRD) Af Amer Est GFR (MDRD) Non-Af BUN/Creatinine Ratio Glucose Calcium Total Bilirubin Direct Bilirubin AST ALT Alkaline Phosphatase Total Protein Albumin Globulin Lipase Serum , Qual Urine Color Urine Clarity Urine pH Ur Specific [place] Urine Protein Urine Glucose (UA) Urine Ketones Urine Occult Blood Urine Nitrite Urine Bilirubin Urine Urobilinogen Ur Leukocyte Esterase Urine RBC Urine WBC Ur Squamous Epith Cells Urine Bacteria Urine Mucus Salicylates Urine Opiates Screen Urine Methadone Screen Acetaminophen Ur Barbiturates Screen Ur Phencyclidine Scrn Ur Amphetamines Screen U Methamphetamin-MDMA U Benzodiazepines Scrn [place] 1.20 Urine Cocaine Screen U Cannabinoids Screen Ur Drug Screen Comment Ethyl Alcohol Home Medications: Medications to take at Discharge Aripiprazole [Abilify] 15 mg PO DAILY 08/01/18 [place] Carbonate [[place] Carbonate ER] 450 mg PO DAILY 08/01/18 Venlafaxine XR [Effexor Xr] 150 mg PO DAILY 08/01/18 Primary Care Physician: Care Physician,No Primary [Primary Care Provider] - Disposition: Psych Hospital or Unit Minutes spent on discharge:: 35 Patient Condition:: Stable Medical Necessity - Tobacco Use Smoking Status: Never smoker Meaningful Use Info Meaningful Use Diagnoses (Choose all that apply): None applicable Code Visit OBSV E&M: 87963 Observation care discharge
== END 2019-02-27 16:50 ==
LOC: ED 19:34 → PCU 02-27 00:42
PROVIDERS: Admitting Provider Hospitalist; Emergency Provider Emergency Medicine; Visit Provider Family Medicine
DX: T56.892A Toxic effect of other metals, intentional self-harm, initial encounter (principal); R89.2 Abnormal level of other drugs, medicaments and biological substances in specimens from other organs, systems and tissues; F41.9 Anxiety disorder, unspecified; F31.9 Bipolar disorder, unspecified; Z79.899 Other long term (current) drug therapy; I45.81 Long QT syndrome; S71.112A Laceration without foreign body, left thigh, initial encounter; S71.111A Laceration without foreign body, right thigh, initial encounter; X78.9XXA Intentional self-harm by unspecified sharp object, initial encounter; Y92.9 Unspecified place or not applicable
CPT/HCPCS: 36415; 80048; 80076; 80178; 80307; 80320; 80329; 81001; 83690; 84703; 85025; 85610; 85730; 93005; 96360; 96361; 97802; 99218; 99285; J7030; A4216; G0378; G0480

== ENCOUNTER 2019-03-18 21:45 | Emergency (ER) | payer MEDICAID, SELFPAY ==
[2019-02-27 00:59] VITALS: BMI 38.8
[2019-03-18 21:46] VITALS: BP 152/92; PULSE 114; RESP 15; TEMP 36.7; O2SAT 97; BMI 40.3
[2019-03-18 22:48] LABS: Absolute Lymphocyte Count 2.73 X10^3/ul (0.83-4.51); Basophil# 0.05 X10^3/uL; Basophil% 0.6 % (0-1); Eosinophil# 0.35 X10^3/uL; Hematocrit 40.4 % (37-47); Lymphocyte # 2.73 X10^3/ul (4.0); Lymphocyte % 30.9 % (19-41); Mean Corp Hgb Conc 32.2 g/gl (32-36); Mean Corpuscular Hgb 27.8 pg (27.0-32.0); Mean Corpuscular Volume 86.5 fL (81-99); Mean Platelet Vol. 9.7 fl (6.2-12.0); Monocyte# 0.71 X10^3/uL; Neutrophil # 4.98 X10^3/uL (2.7-7.7); Neutrophil % 56.3 % (47-70); Platelet Count 254 K/mm3 (150-450); RBC Distribution Width CV 14.1 % (11.6-14.6); RBC Distribution Width SD 44.1 fl (35.1-43.9); Red Blood Count 4.67 M/mm3 (4.2-5.4); White Blood Count 8.8 K/mm3 (4.4-11.0)
[2019-03-18 22:50] LABS: Anion Gap 6 (5-15); BUN 11 mg/dL (7-18); BUN/Creat Ratio 13.9 RATIO (10-20); Calcium,Total 9.3 mg/dL (8.5-10.1); Chloride 109 mmol/L (98-107); Creatinine, Serum 0.79 mg/dL (0.55-1.02); EST Glomerular Filtration Rate 94 mL/min (>60); Est Glom Filt Rate - Afr Amer 113 mL/min (>60); Estimated Creatinine Clearance 117.72 ml/min; Glucose 98 mg/dL (74-106); Potassium 3.7 mmol/L (3.5-5.1); Sodium Level 140 mmol/L (136-145)
[2019-03-18 22:51] LABS: Amphetamine Urine VISTA NEGATIVE (<1000 ng/mL); Barbiturate Urine VISTA NEGATIVE (< 200 ng/mL); Benzodiazepine Urine VISTA NEGATIVE (< 200 ng/mL); Cocaine Urine VISTA NEGATIVE (< 300 ng/mL); Ecstacy Urine VISTA NEGATIVE (< 500 ng/mL); Methadone Urine VISTA NEGATIVE (< 300 ng/mL); PCP Urine VISTA NEGATIVE (< 25 ng/mL); THC Urine VISTA NEGATIVE (< 50 ng/mL); Vista UDS pH Range 6
[2019-03-18 22:53] LABS: POSITIVE COUNT NO; POSITIVE DIFFERENTIAL NO; POSITIVE MORPHOLOGY NO
[2019-03-18 22:55] LABS: Internal QC Validated? YES +Cl - CLEAR BKGD; Pregnancy, Serum, hCG Quali. NEGATIVE Negative
[2019-03-18 23:37] LABS: AST(SGOT) 24 U/L (15-37); Alanine Aminotransfer ALT/SGPT 49 U/L (13-56); Albumin, Serum 3.8 g/dL (3.2-5.0); Alkaline Phosphatase 73 U/L (45-117); Bilirubin, Direct 0.06 mg/dL (0.00-0.30); Globulin 4.4 g/dL (2.2-4.2); Protein, Total 8.2 g/dL (6.4-8.2)
[2019-03-19] VITALS (7 sets, daily range): BP systolic 114–117; BP diastolic 80–83; PULSE 74–98; RESP 14–19; O2SAT 96–98
--- NOTE | 2019-03-19 01:12 | NURSING ---
CALLED FOR CRISIS COUNSELOR TO SEE PT IN ED @ 0055.
--- NOTE | 2019-03-19 01:47 | ED.RN ---
Miguel Jeffries, at bedside with pt
--- NOTE | 2019-03-19 01:49 | ED.RN ---
ECHART GIVEN TO CRISIS ON SITE AT [id number]
--- NOTE | 2019-03-19 02:43 | ED.DCSUM_ITS ---
- ER Visit Summary Date of Service: 03/19/19 Chief Complaint: Suicidal ideation History of Present Illness: The patient is a 23 F who states I hate myself. Patient states that she recently overdosed on lithium was released from psychiatric hospital 1 week ago. She states that today she cut her wrist in an effort to harm herself and to dull the pain. She tells me she saw her psychiatrist last and received a shot of Abilify. That is new for her. She tells me that she has family issues. She has a controlling person in her life who is a friend. She states that she is supposed to move out of her apartment in 2 weeks. She has no plan for that. She states she has not been sleeping well. She notes that she is gaining weight. She is on lithium currently. Physical Examination: Afebrile vital signs are stable Gen: Well-nourished well-developed morbidly obese Head: Normocephalic atraumatic Eyes: [place] EOMI ENT: TMs clear no rhinorrhea moist mucous membranes Neck: Supple no lymphadenopathy no JVD nontender CVS: Regular rate rhythm no murmurs normal S1-S2 Respiratory: No distress clear to auscultation bilaterally chest nontender Abdomen: Soft nontender nondistended normal bowel sounds no masses Back: Nontender Extremity: Nontender no edema Skin: Superficial abrasions to the bilateral arms there are also healed abrasions to the arms and thighs Neuro: alert orientated ?3 CN II-XII intact normal strength sensation reflexes gait cerebellar Psych: Patient endorses suicidality. Appears to have a blunted affect and appears depressed. Test Results: Psychiatric screening labs were negative. Emergency Department Course and Treatment: Patient was assessed by crisis. She cannot contract for safety. She is agreeable to IOP therapy after stabilization at the psychiatric hospital. Patient has spent the night in the emergency department and we have been accepted and we are currently awaiting transportation to psychiatric facility Impression: 1. Depression 2. Suicidal ideation This note was generated with [employer] dictation software. It may contain incorrect words, spelling, and punctuation eloy suicidal ideation t were not noted in review of the chart prior to signing ED Disposition - Plan for ED Patient: Referrals: Care Physician,No Primary [Primary Care Provider] -
--- NOTE | 2019-03-19 04:21 | ED.RN ---
ATTEMPTED TRANSPORT, ADVISED BY [email or web address] TO CALL BACK AFTER 0700
--- NOTE | 2019-03-19 04:50 | ED.RN ---
nurse to nurse report called to Stefanie at [facility]
[2019-03-19] MEDS: Acetaminophen 325 MG Tablet 650 MG PO (07:39)
[2019-03-19] MEDS: ARIPiprazole 5 MG Tablet 15 MG PO (07:40)
[2019-03-19] MEDS: Venlafaxine XR 150 MG Capsule PO (07:40)
== END 2019-03-19 08:34 ==
LOC: ED 22:59
PROVIDERS: Emergency Provider Emergency Medicine
DX: R45.851 Suicidal ideations (principal); F32.9 Major depressive disorder, single episode, unspecified; E66.01 Morbid (severe) obesity due to excess calories; Z79.899 Other long term (current) drug therapy
CPT/HCPCS: 36415; 80048; 80076; 80178; 80307; 80320; 84703; 85025; 99285; G0480

== ENCOUNTER 2019-03-30 21:33 | Emergency (ER) | payer MEDICAID, SELFPAY ==
[2019-03-30 21:34] VITALS: BP 124/96; PULSE 116; RESP 18; TEMP 36.5; O2SAT 97; BMI 38.9
[2019-03-30 22:17] LABS: Absolute Lymphocyte Count 2.32 X10^3/ul (0.83-4.51); Basophil# 0.09 X10^3/uL; Basophil% 0.9 % (0-1); Eosinophil# 0.28 X10^3/uL; Eosinophils% 2.7 % (0-5); Hematocrit 40.4 % (37-47); Hemoglobin 13.4 g/dl (12.0-15.0); Lymphocyte # 2.32 X10^3/ul (4.0); Lymphocyte % 22.4 % (19-41); Mean Corp Hgb Conc 33.2 g/gl (32-36); Mean Corpuscular Hgb 27.6 pg (27.0-32.0); Mean Corpuscular Volume 83.3 fL (81-99); Mean Platelet Vol. 9.9 fl (6.2-12.0); Monocyte% 6.7 % (0-10); Neutrophil # 6.97 X10^3/uL (2.7-7.7); Neutrophil % 67.1 % (47-70); Platelet Count 277 K/mm3 (150-450); RBC Distribution Width CV 13.5 % (11.6-14.6); RBC Distribution Width SD 40.7 fl (35.1-43.9); Red Blood Count 4.85 M/mm3 (4.2-5.4); White Blood Count 10.4 K/mm3 (4.4-11.0)
[2019-03-30 22:19] LABS: POSITIVE COUNT NO; POSITIVE DIFFERENTIAL NO; POSITIVE MORPHOLOGY NO
[2019-03-30 22:33] VITALS: RESP 16
[2019-03-30 22:39] LABS: Internal QC Validated? YES +Cl - CLEAR BKGD; Pregnancy, Serum, hCG Quali. NEGATIVE Negative
[2019-03-30 22:39] LABS: Alcohol, Blood (Medical)-Serum < 3.0 mg/dL
[2019-03-30 22:41] LABS: Anion Gap 7 (5-15); BUN 12 mg/dL (7-18); BUN/Creat Ratio 12.8 RATIO (10-20); Calcium,Total 9.4 mg/dL (8.5-10.1); Chloride 109 mmol/L (98-107); Creatinine, Serum 0.93 mg/dL (0.55-1.02); EST Glomerular Filtration Rate 77 mL/min (>60); Est Glom Filt Rate - Afr Amer 93 mL/min (>60); Glucose 107 mg/dL (74-106); Potassium 3.4 mmol/L (3.5-5.1); Sodium Level 139 mmol/L (136-145)
[2019-03-30 22:50] LABS: Amphetamine Urine VISTA NEGATIVE (<1000 ng/mL); Barbiturate Urine VISTA NEGATIVE (< 200 ng/mL); Benzodiazepine Urine VISTA NEGATIVE (< 200 ng/mL); Cocaine Urine VISTA NEGATIVE (< 300 ng/mL); Ecstacy Urine VISTA POSITIVE (< 500 ng/mL); Methadone Urine VISTA NEGATIVE (< 300 ng/mL); PCP Urine VISTA NEGATIVE (< 25 ng/mL); THC Urine VISTA NEGATIVE (< 50 ng/mL); Vista UDS pH Range 6
[2019-03-30 23:00] VITALS: RESP 16
--- NOTE | 2019-03-30 23:15 | ED.VISSUMM ---
- ER Visit Summary Date of Service: 03/30/19 Chief Complaint: Depressed and suicidal History of Present Illness: The patient is a 23 F for bipolar. Was just hospitalized less than 2 weeks ago and just discharged for depression and suicidal ideation. Patient currently is homeless and living at the [facility]. States she is depressed and contemplating overdosing. Physical Examination: Young female no acute distress. Vital signs are stable. She is afebrile. She does not look septic or toxic. She does not look or smell intoxicated. There is no toxidrome. HEENT exam unremarkable. Neck nontender. No trauma. Lungs clear to auscultation bilaterally. Heart regular rhythm no murmur. Abdomen soft and nontender. Obese. Patient is moving all 4 extremities. There are no acute injuries or lacerations. Back is nontender. Neurologically she is awake and alert. Answering questions and following commands. Currently she is calm and not violent or belligerent. Test Results: CBC normal. Chemistries unremarkable. Normal gap and creatinine. Serum test negative. Tox screen is positive for methamphetamines however she denies alcohol level negative. Emergency Department Course and Treatment: I have already spoken to the counseling center personnel. They noticed patient well. She has been in our hospitals over the last month. They will evaluate her and will make disposition after evaluation. Treatment Plan: [] Disposition: [] Impression: Acute on chronic depression with a history of bipolar disorder Suicidal ideation This note was generated with [employer] dictation software. It may contain incorrect words, spelling, and punctuation that were not noted in review of the chart prior to signing ED Disposition - Plan for ED Patient: Referrals: Care Physician,No Primary [Primary Care Provider] -
[2019-03-30] MEDS: DiphenhydrAMINE 25 MG Capsule PO (23:40)
[2019-03-31] VITALS (11 sets, daily range): BP systolic 112–137; BP diastolic 70–93; PULSE 87–98; RESP 14–16; TEMP 36.4; O2SAT 98–100
[2019-03-31] MEDS: buPROPion (XL) 150 MG TABLET.XL PO (09:24)
[2019-03-31] MEDS: Sertraline 50 MG Tablet 150 MG PO (09:24)
[2019-03-31] MEDS: DiphenhydrAMINE 25 MG Capsule PO (10:57)
--- NOTE | 2019-03-31 11:07 | ED.RN ---
PT C/O ITCHING TO RT LOWER LEG; BENADRYL EFFECTIVE WHEN GIVEN FOR SAME LAST PM.
== END 2019-03-31 12:25 ==
PROVIDERS: Emergency Provider Emergency Medicine
DX: R45.851 Suicidal ideations (principal); F32.9 Major depressive disorder, single episode, unspecified; Z59.0 Homelessness; Z79.899 Other long term (current) drug therapy
CPT/HCPCS: 80048; 80307; 80320; 84703; 85025; 99285; G0480

== ENCOUNTER 2019-04-19 17:56 | Emergency (ER) | payer MEDICAID, SELFPAY ==
[2019-04-19 17:57] VITALS: BP 158/88; PULSE 121; RESP 18; TEMP 36.6; O2SAT 99; BMI 39.2
[2019-04-19 18:46] LABS: Absolute Lymphocyte Count 2.68 X10^3/uL (0.83-4.51); Absolute Neutrophil Count 7.8 X10^3/uL (2.0-7.7); Basophil# 0.08 X10^3/uL; Basophil% 0.7 % (0-1); Eosinophil# 0.15 X10^3/uL; Eosinophils% 1.3 % (0-5); Hematocrit 40.8 % (37-47); Hemoglobin 13.1 g/dL (12.0-15.0); Lymphocyte # 2.68 X10^3/ul (4.0); Lymphocyte % 23.6 % (19-41); Mean Corp Hgb Conc 32.1 g/dL (32-36); Mean Corpuscular Hgb 27.2 pg (27.0-32.0); Mean Corpuscular Volume 84.8 fL (81-99); Mean Platelet Vol. 9.9 fl (6.2-12.0); Monocyte# 0.67 X10^3/uL; Monocyte% 5.9 % (0-10); NRBC Flagged by Analyzer 0 % (0-5); Neutrophil # 7.75 X10^3/uL (2.7-7.7); Neutrophil % 68.1 % (47-70); Platelet Count 277 K/mm3 (150-450); RBC Distribution Width CV 13.2 % (11.6-14.6); RBC Distribution Width SD 40.8 fl (35.1-43.9); Red Blood Count 4.81 M/mm3 (4.2-5.4); White Blood Count 11.4 K/mm3 (4.4-11.0)
[2019-04-19 19:28] VITALS: RESP 18
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
[2019-04-19 19:35] LABS: AST(SGOT) 16 U/L (15-37); Alanine Aminotransfer ALT/SGPT 33 U/L (13-56); Alkaline Phosphatase 75 U/L (45-117); Anion Gap 8 (5-15); BUN 15 mg/dL (7-18); BUN/Creat Ratio 17.1 RATIO (10-20); Calcium,Total 9.2 mg/dL (8.5-10.1); Chloride 108 mmol/L (98-107); Creatinine, Serum 0.88 mg/dL (0.55-1.02); EST Glomerular Filtration Rate 83 mL/min (>60); Est Glom Filt Rate - Afr Amer 100 mL/min (>60); Estimated Creatinine Clearance 105.68 ml/min; Globulin 4.2 g/dL (2.2-4.2); Glucose 96 mg/dL (74-106); Internal QC Validated? YES +Cl - CLEAR BKGD; Potassium 3.5 mmol/L (3.5-5.1); Pregnancy, Serum, hCG Quali. NEGATIVE Negative; Protein, Total 8.2 g/dL (6.4-8.2); Sodium Level 140 mmol/L (136-145)
[2019-04-19 19:37] LABS: Amphetamine Urine VISTA NEGATIVE (<1000 ng/mL); Barbiturate Urine VISTA NEGATIVE (< 200 ng/mL); Benzodiazepine Urine VISTA NEGATIVE (< 200 ng/mL); Cocaine Urine VISTA NEGATIVE (< 300 ng/mL); Ecstacy Urine VISTA NEGATIVE (< 500 ng/mL); Methadone Urine VISTA NEGATIVE (< 300 ng/mL); PCP Urine VISTA NEGATIVE (< 25 ng/mL); THC Urine VISTA NEGATIVE (< 50 ng/mL); Vista UDS pH Range 6
--- NOTE | 2019-04-19 19:59 | CM.ED ---
Social Work Clinical information all obtained. Referral faxed to [facility]. Pending approval at this time. Gus Arevalo MSW, ROSARIO
[2019-04-19 20:03] VITALS: RESP 18
--- NOTE | 2019-04-19 20:07 | ED.DCSUM_ITS ---
- ER Visit Summary Date of Service: 04/19/19 Chief Complaint: Suicidal ideation History of Present Illness: The patient is a 23 F who presents with suicidal ideation. She plans to strangle herself but did not have an attempt. She has a history of suicidal ideation and overdose attempts in the past. She uses alcohol occasionally and is a former smoker. Denies drug use. Physical Examination: Afebrile and vital signs unremarkable except for heart rate of 121. Heart regular. Lungs clear. Abdomen soft. Skin appears normal. Neck is atraumatic and nontender. Alert and oriented. Depressed mood and flat affect. Test Results: White count 11.4. Otherwise CBC normal. Chloride 108 otherwise CMP normal. test negative. Tox screen and alcohol negative. Emergency Department Course and Treatment: Patient had a pink slip by me and suicide precautions. She was evaluated by our clinical social work therapist. We believe she would benefit from inpatient care. Medical clearance is unremarkable. She is medically cleared for transfer and admission to a psychiatric facility. We are awaiting placement at this time. Treatment Plan: As above Disposition: Pending transfer Impression: 1. Suicidal ideation This note was generated with [employer] dictation software. It may contain incorrect words, spelling, and punctuation that were not noted in review of the chart prior to signing ED Disposition - Plan for ED Patient: Referrals: Care Physician,No Primary [Primary Care Provider] -
--- NOTE | 2019-04-19 20:46 | CM.ED ---
Addendum entered by Mely Arevalo 04/19/19 20:47: [place] slip faxed to [facility] Original Note: Social Work Telephone call from [facility], [place]. Patient accepted. Accepting physician: Dr. Murphy. Patient to be admitted to the [facility]. Number for report provide to nursing staff. This health social work professor updating Dr. Griffin, nursing staff, and patient on plan, all agreeable. Gus Arevalo MSW, ROSARIO
[2019-04-19 20:52] VITALS: BP 116/72; PULSE 95; RESP 17; TEMP 36.7; O2SAT 99
== END 2019-04-19 21:17 ==
LOC: ED 18:36
PROVIDERS: Emergency Provider Emergency Medicine
DX: R45.851 Suicidal ideations (principal); Z87.891 Personal history of nicotine dependence
CPT/HCPCS: 80053; 80307; 80320; 84703; 85025; 99284; G0480